=== PATIENT | female | born 1940 | race Caucasian/White ===

== ENCOUNTER 2016-10-18 08:34 | Day surgery (SDC) | payer OTHER ==
[2016-10-16 14:56] VITALS: BMI 26.5
[2016-10-18 09:24] LABS: BASOPHIL 0.7 % (0-2.0); EOSINOPHIL 1.4 % (0-4.5); MCH 26.8 pg (25.7-33.7); MCHC 32.3 g/dl (32.0-36.0); MEAN CELL VOLUME 82.8 fl (80-96); MEAN PLT VOLUME 9.2 fl (7.5-11.1); NEUTROPHILS 62.2 % (42.8-82.8); PLATELET COUNT 284 K/MM3 (134-434); RDW 14.5 % (11.6-15.6); WHITE BLOOD COUNT 8.4 K/mm3 (4.0-10.0)
[2016-10-18 09:38] LABS: INR 1.1 (0.82-1.09); PROTHROMBIN TIME (PATIENT) 12.1 SEC (9.98-11.88)
[2016-10-18 09:49] LABS: ALBUMIN 3.3 g/dl (3.4-5.0); ALK PHOS 102 U/L (45-117); ANION GAP 6 (8-16); BILIRUBIN,TOTAL 0.4 mg/dL (0.2-1.0); CALCIUM 9.4 mg/dL (8.5-10.1); CO2 29 mmol/L (21-32); CREATININE 0.9 mg/dL (0.55-1.02); GLUCOSE,RANDOM 251 mg/dL (74-106); SGOT/AST 12 U/L (15-37); SGPT/ALT 17 U/L (12-78); TOT PROT 7.1 g/dl (6.4-8.2)
[2016-10-18 10:08] VITALS: TEMP 97.8
[2016-10-18 14:03] VITALS: BP 129/57; PULSE 80
== END 2016-10-18 15:00 | disposition home or self-care (01) ==
LOC: JRADIR 08:34
PROVIDERS: ATTEND Internal Medicine Hematology & Oncology
PROC: 06PY3DZ Removal of Intraluminal Device from Lower Vein, Percutaneous Approach (ICD-10-PCS; principal; 2016-10-18)
DX: Z86.711 Personal history of pulmonary embolism (principal)
CPT/HCPCS: 36415; 37193; 76937-TC; 80053; 85025; 85610; C1769; C1773; C1887

== ENCOUNTER 2017-06-18 10:54 | Emergency (ER) | payer OTHER ==
[2017-06-18 11:08] VITALS: TEMP 98; BMI 26.5
--- NOTE | 2017-06-18 11:28 | PDOC ---
History of Present Illness - General History Source: Patient, Family Exam Limitations: No Limitations - History of Present Illness Initial Comments: 06/18/17 11:55 76 y/o F with a PMHx of HTN, HLD, diabetes, hypothyroidism, left leg DVT (one year ago) presents to the ED with right leg pain and back pain for 3 days. Patient reports difficulty walking secondary to pain. She denies numbness, tingling. Denies headache, dizziness. Denies fever, chills. Denies chest pain, SOB. <Catherine Mendoza - Last Filed: 06/18/17 14:04> <Wenceslao Mckeon - Last Filed: 06/18/17 14:16> - General Chief Complaint: Pain Stated Complaint: RT LEG PAIN Time Seen by Provider: 06/18/17 11:27 Past History <Catherine Mendoza - Last Filed: 06/18/17 14:04> - Past Medical History Anemia: No Asthma: No Cancer: No Cardiac Disorders: No CVA: No COPD: No CHF: No Dementia: No Diabetes: Yes GI Disorders: No Disorders: No HTN: Yes Hypercholesterolemia: Yes Liver Disease: No Seizures: No Thyroid Disease: Yes (HYPOTHYROID) Other medical history: LT DVT - Surgical History Cholecystectomy: Yes - Suicide/Smoking/Psychosocial Hx Smoking Status: No Smoking History: Never smoked Number of Cigarettes Smoked Daily: 0 Information on smoking cessation initiated: No Hx Alcohol Use: No Drug/Substance Use Hx: No Substance Use Type: None Hx Substance Use Treatment: No <Wenceslao Mckeon - Last Filed: 06/18/17 14:16> - Past Medical History Allergies/Adverse Reactions: Allergies Allergy/AdvReac Type Severity Reaction Status Date / Time No Known Allergies Allergy Verified 06/18/17 11:04 Home Medications: Ambulatory Orders Levothyroxine [Synthroid -] 0.15 mg PO DAILY 06/07/16 Metformin HCl [Glucophage] 1,000 mg PO BID 06/07/16 Apixaban [Eliquis] 2.5 mg PO BID 10/16/16 Atorvastatin Ca [Lipitor] 40 mg PO HS 06/18/17 Gabapentin 1,000 mg PO DAILY 06/18/17 Omeprazole 20 mg PO DAILY 06/18/17 Tramadol HCl [Ultram] 50 mg PO QID #20 tablet MDD 4 06/18/17 Review of Systems - Review of Systems Able to Perform ROS?: Yes Comments:: 06/18/17 11:55 GENERAL/CONSTITUTIONAL: No fever or chills. No weakness. HEAD, EYES, EARS, NOSE AND THROAT: No change in vision. No ear pain or discharge. No sore throat. CARDIOVASCULAR: No chest pain or shortness of breath. RESPIRATORY: No cough, wheezing, or hemoptysis. GASTROINTESTINAL: No nausea, vomiting, diarrhea or constipation. GENITOURINARY: No dysuria, frequency, or change in urination. MUSCULOSKELETAL: (+) Back pain, right leg pain. No joint or muscle swelling or pain. No neck pain. SKIN: No rash NEUROLOGIC: No headache, vertigo, loss of consciousness, or change in strength/ sensation. ENDOCRINE: No increased thirst. No abnormal weight change. HEMATOLOGIC/LYMPHATIC: No anemia, easy bleeding, or history of blood clots. ALLERGIC/IMMUNOLOGIC: No hives or skin allergy. <Catherine Mendoza - Last Filed: 06/18/17 14:04> *Physical Exam - Vital Signs Last Vital Signs Temp Pulse Resp BP Pulse Ox 98.0 F 76 18 142/72 100 06/18/17 11:05 06/18/17 11:05 06/18/17 11:05 06/18/17 11:05 06/18/17 11:05 - Physical Exam Comments: 06/18/17 11:55 GENERAL: Awake, alert, and fully oriented, in no acute distress HEAD: No signs of trauma EYES: PERRLA, EOMI, sclera anicteric, conjunctiva clear ENT: Auricles normal inspection, hearing grossly normal, nares patent, oropharynx clear without exudates. Moist mucosa NECK: Normal ROM, supple, no lymphadenopathy, JVD, or masses LUNGS: Breath sounds equal, clear to auscultation bilaterally. No wheezes, and no crackles HEART: Regular rate and rhythm, normal S1 and S2, no murmurs, rubs or gallops ABDOMEN: Soft, nontender, normoactive bowel sounds. No guarding, no rebound. No masses EXTREMITIES: Positive straight leg raising on the right side. Tenderness to paraspinal muscle. No edema. No clubbing or cyanosis. No cords, erythema. NEUROLOGICAL: Cranial nerves II through XII grossly intact. Normal speech, normal gait SKIN: Warm, Dry, normal turgor, no rashes or lesions noted. <Catherine Mendoza - Last Filed: 06/18/17 14:04> - Vital Signs Last Vital Signs Temp Pulse Resp BP Pulse Ox 98.0 F 76 18 142/72 100 06/18/17 11:05 06/18/17 11:05 06/18/17 11:05 06/18/17 11:05 06/18/17 11:05 <Wenceslao Mckeon - Last Filed: 06/18/17 14:16> ED Treatment Course - RADIOLOGY Radiograph Interpretation: 06/18/17 14:[address] Reported by Dr. Calixto Yusuf Impression: 1. Lumbar spondylosis resulting in severe canal stenosis at L2-L3 and L3-L4, and at least mild canal stenosis at L4-L5, as described above. 2. Severe narrowing of the left L2-L3 neural foramen, left L3-L4 neural foramina , moderate to severe narrowing of the right L3-L4 neural foramen, moderate to severe narrowing of bilateral L4-L5 neural foraminal stenosis and severe narrowing of bilateral L5-S1 neural foramina with encroachment/compression of multiple exiting nerve roots as described above. 3. Chronic bilateral L5 spondylolysis with grade 1/grade 2 anterolisthesis of L5 on S1. Degenerative grade 1 retrolisthesis of L2 on L3. No evidence of acute frature in the lumbar spine. 4. A 1.1 x 0.8 c indeterminant left adrenal gland nodule is unchanged in size dating back to 06/20/16, and may represent lipid poor adenoma. <Catherine Mendoza - Last Filed: 06/18/17 14:04> *DC/Admit/Observation/Transfer - Attestations Scribe Attestion: 06/18/17 11:55 Documentation prepared by Catherine Mendoza, acting as medical billing specialist for Wenceslao Mckeon DO. <Catherine Mendoza - Last Filed: 06/18/17 14:04> - Discharge Dispostion Admit: No - Attestations Physician Attestion: 06/18/17 11:27 I, Dr. Wenceslao Mckeon, attest that this document has been prepared under my direction and personally reviewed by me in its entirety. I further attest, that it accurately reflects all work, treatment, procedures and medical decision -making performed by me. <Wenceslao Mckeon - Last Filed: 06/18/17 14:16> Diagnosis at time of Disposition: Lumbar radiculopathy, acute - Discharge Dispostion Disposition: HOME Condition at time of disposition: Improved - Prescriptions Prescriptions: Tramadol HCl [Ultram] 50 mg PO QID #20 tablet MDD 4 - Patient Instructions Printed Discharge Instructions: DI for Lumbar Radiculopathy Additional Instructions: Mrs Salinas Take the disc and the report to your doctor you will need follow up with neurology/neurosurgery and or pain managment. Use the Ultram for pain unless it makes you drowsy. Return to us if any problems. Best- Dr. Wenceslao Mckeon
[2017-06-18] MEDS ORDERED: ONDANSETRON *ODT* 4 MG TABLET SL ONE (11:55)
[2017-06-18] MEDS ORDERED: methylPREDNISolone ACET (DEPO) 80 MG/1 ML VIAL IM ONE (11:56)
[2017-06-18] MEDS ORDERED: methylPREDNISolone NA SUCC 40 MG/1 ML VIAL ONE (12:02)
[2017-06-18] MEDS ORDERED: ONDANSETRON *ODT* 4 MG TABLET ONE (12:02)
[2017-06-18 14:27] VITALS: BP 123/50; PULSE 60
== END 2017-06-18 14:27 | disposition home or self-care (01) ==
LOC: JER 10:54
PROC: 3E0233Z Introduction of Anti-inflammatory into Muscle, Percutaneous Approach (ICD-10-PCS; principal; 2017-06-18)
DX: M54.16 Radiculopathy, lumbar region (principal); I10 Essential (primary) hypertension; E03.9 Hypothyroidism, unspecified; E11.9 Type 2 diabetes mellitus without complications; Z79.84 Long term (current) use of oral hypoglycemic drugs; Z86.718 Personal history of other venous thrombosis and embolism; Z79.01 Long term (current) use of anticoagulants
CPT/HCPCS: 72131-TC; 96372; 99282-25

== ENCOUNTER 2017-08-12 17:26 | Emergency (ER) | payer OTHER ==
[2017-08-12 17:30] VITALS: TEMP 98; BMI 20.5
[2017-08-12 19:52] LABS: BASOPHIL 1.1 % (0-2.0); EOSINOPHIL 0.4 % (0-4.5); MCH 27.2 pg (25.7-33.7); MCHC 32.9 g/dl (32.0-36.0); MEAN CELL VOLUME 82.7 fl (80-96); PLATELET COUNT 284 K/MM3 (134-434); RDW 13.5 % (11.6-15.6); WHITE BLOOD COUNT 9.5 K/mm3 (4.0-10.0)
--- NOTE | 2017-08-12 20:04 | PDOC ---
History of Present Illness - General Chief Complaint: Altered Mental Status Stated Complaint: HEAD INJURY YESTERDAY Time Seen by Provider: 08/12/17 19:17 - History of Present Illness Initial Comments: 08/12/17 20:03 CHIEF COMPLAINT: AMS, vomiting HISTORY OF PRESENT ILLNESS: 77 yo F with hx of HTN, DM, chronic low back pain, L leg DVT (on Eliquis) returns to ED s/p head injury yesterday and new onset AMS and vomiting today. Patient's daughter in-law is at bedside and states that the patient's son called her today to bring her here due to two episodes of vomiting, slurred speech, and difficulty ambulating. PAST MEDICAL HISTORY: as per HPI FAMILY HISTORY: Denies SOCIAL HISTORY: Lives at home with family. Denies tobacco, alcohol, illicit drug use. SURGICAL HISTORY: cataract surgery ALLERGIES: No known drug allergies REVIEW OF SYSTEMS General/Constitutional: Denies fever or chills. Denies weakness, weight change. HEENT: Denies change in vision. Denies ear pain or discharge. Denies sore throat. Cardiovascular: Denies chest pain or shortness of breath. Respiratory: Denies cough, wheezing, or hemoptysis. Gastrointestinal: 2 episodes of vomiting today.. Denies rectal bleeding. Genitourinary: Denies dysuria, frequency, or change in urination. Musculoskeletal: Denies joint or muscle swelling or pain. Denies neck or back pain. Skin and breasts: Denies rash or easy bruising. Neurologic: AMS today per family. Denies headache, vertigo, loss of consciousness, or loss of sensation. PHYSICAL EXAM General Appearance: Well-appearing, appropriately dressed. No apparent distress. HEENT: EOMI, PERRLA. No conjunctival pallor. No photophobia, scleral icterus. Respiratory/Chest: Lungs CTAB. Cardiovascular: RRR. S1, S2. Gastrointestinal/Abdominal: Normal bowel sounds. Abdomen soft, non-distended. No tenderness or rebound tenderness. No organomegaly, pulsatile mass, guarding , hernia, hepatomegaly, splenomegaly. Musculoskeletal/Extremities: Normal inspection. FROM of all extremities, normal capillary refill. Pelvis Stable. No CVA tenderness. No tenderness to extremities, pedal edema, swelling, erythema or deformity. Integumentary: Appropriate color, dry, warm. No cyanosis, erythema, jaundice or rash Neurologic: marine underwriter II-XII intact. Fully oriented, alert. Appropriate mood/affect. Motor strength 5/5. No appreciable EOM palsy, facial droop or sensory deficit. A&Ox3, follow commands, respond appropriately CN2-12: conjugate gaze, pupil round, minimally reactive b/l s/p cataract surgery . Visual field full to confrontation. EOMI without nystagmus, pursuit is smooth without saccade. Facial sensation and muscle activation intact bilaterally. Hearing intact bilaterally. Palate elevate symmetrically. Shoulder shrug and neck turn full strength. Tongue protrude midline. Motor: UE and LE strength 5/5 throughout bilaterally. Sensory: pin prick & temp : BUE & BLE intact and equal bilaterally Vibration & propioception: intact bilaterally at 1st MCP and MTP joints. no sensory level noted on trunk Cerebellar: Rapid-alternating movement with regular rhythm without bradykinesia. Edzhsp-ry-tayt and yqdx-zs-[id number] intact bilaterally without dysmetria or overshoot. 08/12/17 22:02 Past History - Past Medical History Allergies/Adverse Reactions: Allergies Allergy/AdvReac Type Severity Reaction Status Date / Time No Known Allergies Allergy Verified 08/12/17 17:31 Home Medications: Ambulatory Orders Levothyroxine [Synthroid -] 0.15 mg PO DAILY 06/07/16 Metformin HCl [Glucophage] 1,000 mg PO BID 06/07/16 Apixaban [Eliquis] 2.5 mg PO BID 10/16/16 Atorvastatin Ca [Lipitor] 40 mg PO HS 06/18/17 Gabapentin 1,000 mg PO DAILY 06/18/17 Omeprazole 20 mg PO DAILY 06/18/17 Tramadol HCl [Ultram] 50 mg PO QID PRN #15 tablet MDD 300mg 08/11/17 Anemia: No Asthma: No Cancer: No Cardiac Disorders: No CVA: No COPD: No CHF: No DVT: Yes (On Plavix) Dementia: No Diabetes: Yes GI Disorders: No Disorders: No HTN: Yes Hypercholesterolemia: Yes Liver Disease: No Seizures: No Thyroid Disease: Yes (HYPOTHYROID) - Surgical History Cholecystectomy: Yes - Suicide/Smoking/Psychosocial Hx Smoking Status: No Smoking History: Never smoked Number of Cigarettes Smoked Daily: 0 Information on smoking cessation initiated: No Hx Alcohol Use: No Drug/Substance Use Hx: No Substance Use Type: None Hx Substance Use Treatment: No *Physical Exam - Vital Signs Last Vital Signs Temp Pulse Resp BP Pulse Ox 98 F 89 19 145/76 96 08/12/17 17:28 08/12/17 17:28 08/12/17 17:28 08/12/17 17:28 08/12/17 17:28 ED Treatment Course - LABORATORY CBC & Chemistry Diagram: 08/12/17 19:40 08/12/17 19:40 - ADDITIONAL ORDERS Additional order review: 08/12/17 19:40 RBC 4.44 MCV 82.7 MCHC 32.9 RDW 13.5 MPV 9.0 Neutrophils % 73.0 Lymphocytes % 19.3 D Monocytes % 6.2 Eosinophils % 0.4 Basophils % 1.1 - RADIOLOGY Radiology Studies Ordered: Category Date Time Status HEAD CT WITHOUT CONTRAST [CT] Stat CT Scan 08/12/17 19:24 Ordered CHEST X-RAY PORTABLE* [RAD] Stat Radiology 08/12/17 19:23 Taken Medical Decision Making - Medical Decision Making 08/12/17 21:55 77 yo F with hx of HTN, DM, chronic low back pain returns to ED s/p head injury yesterday and new onset AMS and vomiting today. -CBC, CMP, PT/INR, card profile -CXR, EKG -Head CT Laboratory Tests 08/12/17 19:40 Sodium 134 L BUN 32 H D Creatinine 1.1 H D Random Glucose 282 H Patient likely dehydrated secondary to vomiting, will give [address] results (Imaging gluing machine operator electronic): No acute intracranial hemorrhage mass effect or midline shift. Mild frontal scalp soft tissue swelling. Age indeterminate most likely chronic 1 cm lacunar infarct right basal ganglia. The ventricles sulci and basilar cisterns have a normal size and contour. Mild nonspecific periventricular predominant low density throughout the deep white matter is most likely due to mild small vessel ischemic white matter disease. Calcified arteriosclerosis of the cavernous carotids noted. The sinuses and mastoid air cells are clear within the githb-qt-[id number]. The calcarium is intact. Read by: Diego Chavez MD CXR positive for nondisplaced fracutre of left humeral head and chronic nondisplaced fracture of right clavicle. Patient reassessed, at this time family states patient is completely at baseline and having full normal conversations with family members. Patient reports no pain, headache, dizziness or nausea at this time. Patient also denies any pain to shoulder, denies pain with movement, no tenderness on palpation. Patient continues to have full ROM to all extremities. Discussed case with on-call PCP Nilsa, who agrees that patient can be discharged with close follow up with PCP, neuro, and ortho. Will provide referrals for Dr. Gaona and Dr. Silva. Advised patient and family they MUST follow up with PCP, neuro, and ortho TOMORROW and of signs and symptoms for return to ER; patient and family verbalized understanding and agrees to plan. *DC/Admit/Observation/Transfer Diagnosis at time of Disposition: Head injury Qualifiers: Encounter type: sequela Qualified Code(s): S09.90XS - Unspecified injury of head, sequela Humeral head fracture Qualifiers: Laterality: left - Discharge Dispostion Disposition: HOME Condition at time of disposition: Stable Admit: No - Referrals Referrals: Uriel Mercado MD [Primary Care Provider] - Mohsen Gaona MD [Staff Physician] - Corey Silva MD [Staff Physician] - - Patient Instructions Printed Discharge Instructions: DI for Shoulder Fracture, DI for Closed Head Injury Additional Instructions: You MUST follow up with Ricardo Keen, and [facility] TOMORROW. Dr. Gaona will be expecting your phone call in the morning. You also will need to follow up with Dr. Silva's office for further evaluation of your shoulder. If you develop ANY new headache, vomiting, change in speech or vision, new difficulty walking, or any other new or concerning symptoms, please return to the ER immediately. Usted DEBE seguir con los Dres. Ricardo Arellano y [facility]elaria CULLEN. El Dr. Gaona esperar taylor llamada telefnica por la daphne. Tambin necesitar hacer un seguimiento con la oficina del Dr. Silva para carleen evaluacin adicional de taylor hombro. Si desarrolla CUALQUIER dolor de juanita nuevo, vmitos, cambios en el habla o la vista, nuevas dificultades para caminar o cualquier otro sntoma nuevo o preocupante, regrese a la scott de emergencia inmediatamente. Print Language: CHINESE - Post Discharge Activity
[2017-08-12 20:06] LABS: INR 1.16 (0.82-1.09); PROTHROMBIN TIME (PATIENT) 13.1 SEC (9.98-11.88)
[2017-08-12 20:19] LABS: ALBUMIN 3.3 g/dl (3.4-5.0); ANION GAP 7 (8-16); BILIRUBIN,TOTAL 0.5 mg/dL (0.2-1.0); CO2 29 mmol/L (21-32); CREATININE 1.1 mg/dL (0.55-1.02); GLUCOSE,RANDOM 282 mg/dL (74-106); SGOT/AST 10 U/L (15-37); SGPT/ALT 19 U/L (12-78); TOT PROT 7.3 g/dl (6.4-8.2)
[2017-08-12 20:22] LABS: ALK PHOS 82 U/L (45-117); CPK 93 IU/L (26-192); TROPONIN I < 0.02 ng/ml (0.00-0.05)
[2017-08-12] MEDS ORDERED: SODIUM CHLORIDE 0.9% 1000 ML INFUS.BAG IV ONE (21:01)
[2017-08-12 22:21] VITALS: BP 143/69; PULSE 81
--- NOTE | 2017-08-13 17:31 | EKG ---
Test Reason : Blood Pressure : / mmHG Vent. Rate : 081 BPM Atrial Rate : 081 BPM P-R Int : 146 ms QRS Dur : 086 ms QT Int : 396 ms P-R-T Axes : 011 004 032 degrees QTc Int : 460 ms NORMAL SINUS RHYTHM MINIMAL VOLTAGE CRITERIA FOR LVH, MAY BE NORMAL VARIANT BORDERLINE ECG WHEN COMPARED WITH ECG OF 07-JUN-2016 09:47, Confirmed by EARL SIEGEL MD ([id number]) on 08/13/2017 5:30:56 PM Referred By: Confirmed By:EARL SIEGEL MD
== END 2017-08-12 22:23 | disposition home or self-care (01) ==
LOC: JER 17:26
DX: E86.0 Dehydration (principal); S09.8XXA Other specified injuries of head, initial encounter; I10 Essential (primary) hypertension; E11.9 Type 2 diabetes mellitus without complications; Z79.84 Long term (current) use of oral hypoglycemic drugs; M54.5 Low back pain; E03.9 Hypothyroidism, unspecified; Z86.718 Personal history of other venous thrombosis and embolism; Z79.01 Long term (current) use of anticoagulants; W01.190A Fall on same level from slipping, tripping and stumbling with subsequent striking against furniture, initial encounter; Y93.89 Activity, other specified; Y92.038 Other place in apartment as the place of occurrence of the external cause; S42.295A Other nondisplaced fracture of upper end of left humerus, initial encounter for closed fracture; S42.001A Fracture of unspecified part of right clavicle, initial encounter for closed fracture
CPT/HCPCS: 36415; 70450-TC; 71010-TC; 80053; 82550; 84484; 85025; 85610; 86850; 86900; 86901; 93005; 93010; 99284-25

== ENCOUNTER 2018-05-06 17:18 | Emergency (ER) | payer OTHER ==
[2018-05-06 17:29] VITALS: BP 126/64; PULSE 76; TEMP 98.8; BMI 26.9
--- NOTE | 2018-05-06 17:43 | PDOC ---
Rapid Medical Evaluation Chief Complaint: Injury Time Seen by Provider: 05/06/18 17:38 Medical Evaluation: Allergies Allergy/AdvReac Type Severity Reaction Status Date / Time No Known Allergies Allergy Verified 08/12/17 17:31 Vital Signs Temp Pulse Resp BP Pulse Ox 98.8 F 76 18 126/64 96 05/06/18 17:26 05/06/18 17:26 05/06/18 17:26 05/06/18 17:26 05/06/18 17:26 05/06/18 17:38 complain: Patient with h/o DVT 2 years ago on coumadin present with complains of right big toe and right cheek bone pain s/p trip n grand child falling hitting the right cheek area and toe 2 hrs ago. Denies VASQUEZ, dizziness, blurry vision, LOC , light headedness, N/V exam: moderate tenderness and bruising to cuticle of right big toenail. mild tenderness with mild bruising to roght cheek area. no step down to cheek bone. no evidence of facial bone fracture on exam order: x-rays of right big toe. CT w/o contrast of facial bone. PT/INR labs f/u patient will proceed to ED for further evaluation 05/06/18 17:44 05/06/18 17:45 Discharge Disposition - Diagnosis Bruise of face Qualifiers: Encounter type: initial encounter Qualified Code(s): S00.83XA - Contusion of other part of head, initial encounter Contusion of great toe of right foot Qualifiers: Encounter type: initial encounter Damage to nail status: without damage Qualified Code(s): S90.111A - Contusion of right great toe without damage to nail, initial encounter - Discharge Dispostion Last Admission D/C Date: 06/23/16 - Referrals Referrals: Uriel Mercado MD [Primary Care Provider] - - Patient Instructions - Post Discharge Activity
[2018-05-06 18:38] LABS: INR 1.11 (0.83-1.09); PROTHROMBIN TIME (PATIENT) 12.5 SEC (9.7-13.0)
[2018-05-06] MEDS: DIPHTH,PERTUSS(ACELL),TET 0.5 ML DISP.SYRIN IM ONE ×2 (18:38→19:48)
[2018-05-06] MEDS ORDERED: BACITRACIN 15 GM TUBE TOPICAL OINTMENT TP ONE (19:10)
--- NOTE | 2018-05-06 19:10 | PDOC ---
History of Present Illness - General Chief Complaint: Injury Stated Complaint: FALL/INJURY Time Seen by Provider: 05/06/18 17:38 History Source: Patient, Family Exam Limitations: No Limitations - History of Present Illness Initial Comments: 05/06/18 19:03 77 yr female tripped over her small grandchild this am injured her toe and landed face first. no loc, pt ambualtory. Pt denies dizzyness no headache or vomiting. pt has bruising to the right cheek. Past History - Past Medical History Allergies/Adverse Reactions: Allergies Allergy/AdvReac Type Severity Reaction Status Date / Time No Known Allergies Allergy Verified 08/12/17 17:31 Home Medications: Ambulatory Orders Levothyroxine [Synthroid -] 0.15 mg PO DAILY 06/07/16 Metformin HCl [Glucophage] 1,000 mg PO BID 06/07/16 Apixaban [Eliquis] 2.5 mg PO BID 10/16/16 Atorvastatin Ca [Lipitor] 40 mg PO HS 06/18/17 Gabapentin 1,000 mg PO DAILY 06/18/17 Omeprazole 20 mg PO DAILY 06/18/17 Tramadol HCl [Ultram] 50 mg PO QID PRN #15 tablet MDD 300mg 08/11/17 Anemia: No Asthma: No Cancer: No Cardiac Disorders: No CVA: No COPD: No CHF: No DVT: Yes (On Plavix) Dementia: No Diabetes: Yes GI Disorders: No Disorders: No HTN: Yes Hypercholesterolemia: Yes Liver Disease: No Seizures: No Thyroid Disease: Yes (HYPOTHYROID) Other medical history: DVT - Surgical History Cholecystectomy: Yes - Suicide/Smoking/Psychosocial Hx Smoking Status: No Smoking History: Never smoked Number of Cigarettes Smoked Daily: 0 Hx Alcohol Use: No Drug/Substance Use Hx: No Substance Use Type: None Hx Substance Use Treatment: No Trauma Specific PMHX - Complaint Specific PMHX Arthritis: No Back Injury: No Neck Injury: No Hx Sacro Iliac Joint Dysfunction: No Review of Systems - Review of Systems Able to Perform ROS?: Yes Is the patient limited Divehi proficient: No Musculoskeletal: Yes: Symptoms Reported *Physical Exam - Vital Signs Last Vital Signs Temp Pulse Resp BP Pulse Ox 98.8 F 76 18 126/64 96 05/06/18 17:26 05/06/18 17:26 05/06/18 17:26 05/06/18 17:26 05/06/18 17:26 - Physical Exam General Appearance: Yes: Nourished, Appropriately Dressed HEENT: positive: EOMI, MARIA INES, TMs Normal, Pharynx Normal, Other (swelling over the right cheek with bruising) Neck: positive: Supple. negative: Tender, Decreased range of motion, Tender lateral, Tender midline Respiratory/Chest: positive: Lungs Clear, Normal Breath Sounds. negative: Chest Tender Cardiovascular: positive: Regular Rhythm, Regular Rate Gastrointestinal/Abdominal: positive: Normal Bowel Sounds, Soft Musculoskeletal: positive: Normal Inspection Extremity: positive: Normal Capillary Refill, Other (right great toe with echymosis abrasion to the cuticle noted no active bleeding ) Integumentary: positive: Normal Color, Dry, Warm, Bruising (right cheek ) Neurologic: positive: investment counselor II-XII NML intact, Fully Oriented, Alert, Normal Mood/ Affect Procedures - Laceration/Wound Repair Left 1st digit Wound Length: to 2.5 cm Wound Explored: clean Wound's Depth, Shape: superficial Betadine Prep: Yes Sterile Dressing Applied: Yes ED Treatment Course - ADDITIONAL ORDERS Additional order review: Laboratory Results 05/06/18 18:20 PT with INR 12.50 INR 1.11 H - RADIOLOGY Radiology Studies Ordered: Category Date Time Status HEAD CT WITHOUT CONTRAST [CT] Stat CT Scan 05/06/18 18:22 Ordered - Medications Given in the ED: ED Medications Discontinued Medications Generic Name Dose Route Start Last Admin Trade Name Freq PRN Reason Stop Dose Admin Diphtheria/Tetanus/Acell Pertussis 0.5 ml 05/06/18 18:30 05/06/18 18:38 Boostrix - IM 05/06/18 18:31 0.5 ml .ONCE ONE Administration *DC/Admit/Observation/Transfer Diagnosis at time of Disposition: Bruise of face Qualifiers: Encounter type: initial encounter Qualified Code(s): S00.83XA - Contusion of other part of head, initial encounter Contusion of great toe of right foot Qualifiers: Encounter type: initial encounter Damage to nail status: without damage Qualified Code(s): S90.111A - Contusion of right great toe without damage to nail, initial encounter - Discharge Dispostion Disposition: HOME Condition at time of disposition: Good - Referrals Referrals: Uriel Mercado MD [Primary Care Provider] - - Patient Instructions Additional Instructions: apply ice every 2hrs for 20 minutes for the next 2 days to the cheek take tylenol for any pain as needed follow with your doctor TOMORROW you must call your doctor in the morning and tell them you were in the ER - Post Discharge Activity
== END 2018-05-06 20:06 | disposition home or self-care (01) ==
LOC: JER 17:18 → JERFT 17:18
PROC: 3E0234Z Introduction of Serum, Toxoid and Vaccine into Muscle, Percutaneous Approach (ICD-10-PCS; principal; 2018-05-06)
DX: S90.111A Contusion of right great toe without damage to nail, initial encounter (principal); Z86.718 Personal history of other venous thrombosis and embolism; Z79.01 Long term (current) use of anticoagulants; I10 Essential (primary) hypertension; E78.00 Pure hypercholesterolemia, unspecified; W03.XXXA Other fall on same level due to collision with another person, initial encounter; Y93.89 Activity, other specified; Y92.9 Unspecified place or not applicable
CPT/HCPCS: 36415; 70450-TC; 70486-TC; 73660-TC-FY; 85610; 90715; 99281-25